=== PATIENT | female | born 1955 | race Caucasian/White ===

== ENCOUNTER → 2017-04-16 | Outpatient (CLI) | payer BC, OTHER ==
--- NOTE | 2017-04-17 17:28 | RADIOLOGY IMAGING REPORT ---
FACILITY: [facility] - [place] PATIENT NAME: EUNICE ALAMO : [id number] MR: [id number] V: [id number] EXAM DATE: ORDERING PHYSICIAN: ISH MOSCOSO TECHNOLOGIST: Elizabeth Donahue PROCEDURE:RIGHT DIGITAL DIAGNOSTIC MAMMOGRAM WITH CAD ASSISTED INTERPRETATION AND 3D BREAST TOMOSYNTHESIS. COMPARISON:Prior mammograms of 10/02/16, 05/30/16, 10/01/15, 09/16/15 and 07/04/11. INDICATIONS:SIX MONTH FOLLOWUP. FINDINGS: Moderately heterogeneous fibroglandular tissue is again seen throughout the right breast. The parenchymal pattern has remained stable when allowing for difference in mammographic technique and patient positioning. The scattered round calcifications in the medial and lateral aspects of the right breast have remained stable. There is no demonstration of malignant appearing mass or calcification in the right breast. DIAGNOSTIC CATEGORY 3--PROBABLY BENIGN FINDING. RECOMMENDATIONS: SIX MONTH FOLLOW-UP DIAGNOSTIC MAMMOGRAM: BILATERAL BREASTS. IMPRESSION: Bi-RADS 3: A six month followup bilateral mammogram is recommended at which time the patient will be due for her annual mammogram. Images were reviewed with R2CAD and 3D breast tomosynthesis. Dictated by: Jessica Gross M.D. on 04/16/2017 at 17:00 Transcribed by: MILTON on 04/16/2017 at 18:15 Approved by: Jessica Gross M.D. on 04/17/2017 at 17:27 [facility]
== END ==
LOC: MAMO 10:22
PROVIDERS: ATTEND Obstetrics & Gynecology
DX: R92.1 Mammographic calcification found on diagnostic imaging of breast (principal)
CPT/HCPCS: 77065

== ENCOUNTER → 2017-09-06 | Outpatient (CLI) | payer BC, OTHER ==
[~2017-09-06] MED LIST: CETI-176 PO; CHOL500050 PO; IBUP-56 PO
== END ==
LOC: AUD 08:30
PROVIDERS: ATTEND Otolaryngology
DX: H90.3 Sensorineural hearing loss, bilateral (principal)
CPT/HCPCS: 92557; 92570

== ENCOUNTER → 2018-05-07 | Outpatient (CLI) | payer BC, OTHER ==
--- NOTE | 2018-05-08 15:08 | RADIOLOGY IMAGING REPORT ---
FACILITY: [facility] - [place] PATIENT NAME: EUNICE ALAMO : [id number] MR: [id number] V: [id number] EXAM DATE: [id number] ORDERING PHYSICIAN: ISH MOSCOSO TECHNOLOGIST: Michelle Nicholson PROCEDURE:BILATERAL DIAGNOSTIC DIGITAL MAMMOGRAM WITH CAD ASSISTED INTERPRETATION & 3D TOMOSYNTHESIS COMPARISON:Prior mammograms of 04/16/17, 10/02/16, 05/30/16, 10/01/15, 09/16/15, 07/04/11 INDICATIONS:6 month follow up FINDINGS: The breasts are heterogeneously dense which can obscure small masses. Small round calcifications in the medial & lateral aspects of the Right breast have remained stable. There is a well circumscribed nodular density in the deep central Right breast that appears slightly more prominent when compared to the prior study. Today's Right breast Ultrasound did demonstrate a simple cyst in the 9 o'clock position which likely accounts for this nodule. In the upper outer quadrant of the Right breast junction of the middle & posterior thirds there is an area of architectural distortion best seen on tomographic images 31-47 on the Right MLO view. This is best seen on the Right CC tomographic images 30-45. Surgical excision of this area aided by 3D mammographically guided needle hookwire combination is recommended. DIAGNOSTIC CATEGORY 4--SUSPICIOUS FOR MALIGNANCY. RECOMMENDATIONS: SURGICAL BIOPSY COORDINATED WITH MAMMOGRAM HOOKWIRE LOCALIZATION: RIGHT BREAST. IMPRESSION: BIRADS 4: Suspicious for malignancy Surgical excision of the area of architectural distortion in the upper outer quadrant of the Right breast at the junction of the middle & posterior thirds aided by 3D mammographic needle hookwire combination is recommended. These findings were discussed with the patient at the time of the examination. Dictated by: Jessica Gross M.D. on 05/07/2018 at 14:56 Transcribed by: NANCI on 05/08/2018 at 9:13 Approved by: Jessica Gross M.D. on 05/08/2018 at 15:08 [facility]
--- NOTE | 2018-05-08 15:09 | RADIOLOGY IMAGING REPORT ---
FACILITY: [facility] PATIENT NAME: EUNICE ALAMO : [id number] MR: [id number] V: [id number] EXAM DATE: ORDERING PHYSICIAN: ISH MOSCOSO TECHNOLOGIST: Priscilla Rodrigues RT(R)(CT) PROCEDURE:US RIGHT BREAST COMPARISON:Prior mammograms dated 04/16/17, 10/02/16, 05/30/16, 10/01/15, 09/16/15, 07/04/11 INDICATIONS:6 month follow up- IF INDICATED FINDINGS: In the 9 o'clock position of the Right breast 4cm from the nipple there is a well circumscribed cyst measuring 8mm in diameter that likely accounts for the mammographic nodule seen in the deep central Right breast. Other smaller cysts are seen scattered throughout the Right breast in the 9, 10 & 12 o'clock positions. No sonographic correlate could be identified to account for the area of architectural distortion in the upper outer quadrant of the Right breast at the junction of the middle & posterior thirds. Therefore, needle hookwire localization of this area with 3D mammogram is recommended. DIAGNOSTIC CATEGORY 4--SUSPICIOUS FOR MALIGNANCY. RECOMMENDATIONS: SURGICAL BIOPSY COORDINATED WITH MAMMOGRAM HOOKWIRE LOCALIZATION: RIGHT BREAST. IMPRESSION: BIRADS 4: Suspicious for malignancy There is a simple cyst in the 9 o'clock position of the Right breast likely accounting for the nodular density seen in the deep central Right breast. No sonographic correlate could be identified to account for the area of architectural distortion in the upper outer quadrant of the Right breast junction of the middle & posterior thirds. Therefore, surgical biopsy coordinated with 3D mammographic hookwire localization recommended for further evaluation. Dictated by: Jessica Gross M.D. on 05/07/2018 at 14:48 Transcribed by: NANCI on 05/08/2018 at 9:18 Approved by: Jessica Gross M.D. on 05/08/2018 at 15:08 [facility]
== END ==
LOC: MAMO 01:04
PROVIDERS: ATTEND Obstetrics & Gynecology
DX: N60.01 Solitary cyst of right breast (principal); R92.8 Other abnormal and inconclusive findings on diagnostic imaging of breast
CPT/HCPCS: 77062; 77066

== ENCOUNTER → 2018-11-15 | Outpatient (CLI) | payer BC, OTHER ==
--- NOTE | 2018-11-15 12:07 | RADIOLOGY IMAGING REPORT ---
FACILITY: [facility] - [place] PATIENT NAME: EUNICE ALAMO : [id number] MR: [id number] V: [id number] EXAM DATE: [id number] ORDERING PHYSICIAN: ISH MOSCOSO TECHNOLOGIST: Michelle Nicholson PROCEDURE: BILATERAL DIGITAL SCREENING MAMMOGRAM WITH CAD ASSISTED INTERPRETATION & 3D TOMOSYNTHESIS. REASON FOR STUDY: Screening. FAMILY HISTORY OF BREAST CANCER: Paternal grandmother. BREAST PROCEDURES/TREATMENTS: Benign Stereotactic Biopsy of the Right Breast & Benign Ultrasound Guided Biopsy of the Right Breast. COMPARISON: 05/07/18, 04/16/17, 10/02/16, 05/30/16, 10/01/15, 09/16/15. VIEWS OBTAINED: Bilateral 2D & 3D full field CC & MLO projections. BREAST DENSITY: The breasts are heterogeneously dense which can obscure small masses. MAMMOGRAM FINDINGS: The nodular density in the 9 o'clock position of the Right breast posterior depth is again seen although has increased in size. The margins are slightly indistinct at this time therefore follow-up Right breast Ultrasound is recommended (the previous Right breast Ultrasound suggested that this was a simple cyst). There are 2 biopsy clips in the upper outer quadrant of the Right breast. The remainder of the parenchymal pattern has remained stable. IMPRESSION: BIRADS 0: Incomplete. Right breast Ultrasound recommended as described above. DIAGNOSTIC CATEGORY 0--INCOMPLETE: NEED ADDITIONAL IMAGING EVALUATION. RECOMMENDATIONS: ULTRASOUND: RIGHT BREAST. Dictated by: Jessica Gross M.D. on 11/15/2018 at 11:11 Transcribed by: ALLISON on 11/15/2018 at 11:19 Approved by: Jessica Gross M.D. on 11/15/2018 at 12:02 [facility]
== END ==
LOC: MAMO 00:47
PROVIDERS: ATTEND Obstetrics & Gynecology
DX: Z12.31 Encounter for screening mammogram for malignant neoplasm of breast (principal); R92.8 Other abnormal and inconclusive findings on diagnostic imaging of breast
CPT/HCPCS: 77063; 77067

== ENCOUNTER → 2018-11-27 | Outpatient (CLI) | payer BC, OTHER ==
--- NOTE | 2018-11-27 15:17 | RADIOLOGY IMAGING REPORT ---
FACILITY: [facility] PATIENT NAME: EUNICE ALAMO : [id number] MR: [id number] V: [id number] EXAM DATE: [id number] ORDERING PHYSICIAN: ISH MOSCOSO TECHNOLOGIST: Bandar Gardner RDMS, JOSE F PROCEDURE:US RIGHT BREAST COMPARISON:Mammogram 11/15/18. INDICATIONS:Abnormal Screening Mammogram. FINDINGS: 4cm from the nipple in the 9 o'clock position of the Right breast there is a deep oval anechoic 1.2cm \thecyst which correlates with the mammographic mass. This has grown from the 8mm cyst shown in April. 2cm from the nipple at 8 o'clock an additional 6mm cyst. 6cm from the nipple at 10 o'clock there is a 7mm deep cyst. Additional 8mm cyst 2cm from the nipple at 11 o'clock. No solid mass. DIAGNOSTIC CATEGORY 2--BENIGN FINDING. RECOMMENDATIONS: ROUTINE MAMMOGRAM IN 1YR AND CLINICAL EVALUATION. IMPRESSION: BIRADS 2: Benign finding. I reviewed the Ultrasound at exam completion and had the technologist convey the benign result to the patient for me. Dictated by: Yeison De Anda on 11/27/2018 at 11:56 Transcribed by: ALLISON on 11/27/2018 at 13:56 Approved by: Yeison De Anda on 11/27/2018 at 15:11 [facility]
== END ==
LOC: US 10:22
PROVIDERS: ATTEND Obstetrics & Gynecology
DX: N60.01 Solitary cyst of right breast (principal)